=== PATIENT | female | born 1980 | race Caucasian/White ===

== ENCOUNTER 2016-08-23 21:54 | Emergency (ER) | payer BC ==
[~2016-08-23] VITALS: Ht 160 cm; Wt 63.5 kg
--- NOTE | 2016-08-23 22:20 | Emergency Room Report ---
History of Present Illness General Chief Complaint: Complications Source: Patient Present Illness HPI The patient did have a flight from [place]. After that she started having pain in her medial upper thigh. She spoke with her doctor and her doctor sent her in to get evaluation for blood clot. The pain is worse when she lifts her leg. There is no swelling in the ankle. Is no calf tenderness. She's not had blood clots before. The patient is 22 weeks . Estimated date of confinement is December 18. Her last period was March. She lives in [place] and that her OBS. She feels movement. There is no vaginal discharge or bleeding. There is no abdominal pain. There's no dysuria. She has no fevers. There is no cough, chest pain, dyspnea or hemoptysis. There is no family history blood clots. Allergies: Uncoded Allergies: SULFA (Allergy, Unknown, 08/23/16) Patient History Past Medical History: see triage record Social History: Denies: smoking Social History Narrative from [place] Last Menstrual Period: 03/2016 Now: Yes - 22 weeks : 1 Para: 0 Reviewed Nursing Documentation: PMH: Agreed, PSxH: Agreed Nursing Documentation-PMH Past Medical History: No Stated History Review of Systems All Other Systems: negative except mentioned in HPI Physical Exam Vital Signs Date Time Temp Pulse Resp B/P Pulse Ox O2 Delivery O2 Flow Rate FiO2 08/23/16 22:03 97.3 81 16 107/71 100 Room Air Sp02 EP Interpretation: reviewed, normal General Appearance: well appearing, no apparent distress, GCS 15 Head: normocephalic Eyes: bilateral eye normal inspection ENT: moist mucus membranes Neck: supple Respiratory: lungs clear, normal breath sounds Cardiovascular #1: regular rate, rhythm, no edema Cardiovascular #2: 2+ radial (R) Gastrointestinal: normal inspection, normal bowel sounds, non tender, no mass, non-distended, other - gravid - FHT 146 Musculoskeletal: back normal, gait/station normal, normal range of motion, no calf tenderness, Alon's Sign negative, tender - thigh, medially, worse with adduction Neurologic: alert, oriented x3 Psychiatric: mood/affect normal Skin: normal inspection, warm/dry Medical Decision Making Diagnostic Impression: Primary Impression: Muscle strain Additional Impression: 22 weeks gestation of ER Course Patient with thigh pain after airplane trip. 22 weeks without sy. Here to exclude DVT. Ultrasound indicated. Tylenol given. Ultrasound negative. Possible false negative test, but risk is low. Needs repeat exam. Improved. Patient stable for outpatient observation and treatment. Labs Test 08/23/16 23:00 Urine Color Yellow Urine Appearance Clear Urine pH 7 (4.5-8.0) Urine Specific [place] 1.010 (1.005-1.035) Urine Protein Negative (NEGATIVE) Urine Glucose (UA) Negative (NEGATIVE) Urine Ketones Negative (NEGATIVE) Urine Occult Blood Negative (NEGATIVE) Urine Nitrite Negative (NEGATIVE) Urine Bilirubin Negative (NEGATIVE) Urine Urobilinogen Normal MG/DL (0.0-1.0) Urine Leukocyte Esterase 1+ (NEGATIVE) Urine RBC 0-2 /HPF (0 - 2) Urine WBC 2-4 /HPF (0 - 2) Urine Squamous Epithelial Cells Few /LPF (NONE/OCC) Urine Amorphous Sediment Few /LPF (NONE) Urine Bacteria Few /HPF (NONE) CT/MRI/US Diagnostic Results CT/MRI/US Diagnostic Results : Imaging Test Ordered: U/S DVT study Impression neg for DVT Last Vital Signs Date Time Temp Pulse Resp B/P Pulse Ox O2 Delivery O2 Flow Rate FiO2 08/23/16 22:03 97.3 81 16 107/71 100 Room Air Status: improved Disposition: HOME, SELF-CARE Condition: Improved Alex Luong M.D. Aug 23, 2016 22:20
[2016-08-23 23:14] VITALS: BP 108/80
[2016-08-23 23:26] LABS: APPEARANCE,URINE CLEAR; KETONES,URINE NEGATIVE (NEGATIVE); LEUKOCYTE ESTERASE ,URINE 1+ (NEGATIVE); NITRITE,URINE NEGATIVE (NEGATIVE); PH,URINE 7 (4.5-8.0); PROTEIN,URINE NEGATIVE (NEGATIVE); UROBILINOGEN,URINE NORMAL MG/DL (0.0-1.0)
[2016-08-23 23:39] LABS: AMORPHOUS SEDIMENT,UR FEW /LPF; BACTERIA,URINE FEW /HPF; RBC,URINE 0-2 /HPF (0 - 2); SQUAMOUS EPITHELIAL CELL,UR FEW /LPF (NONE/OCC)
--- NOTE | 2016-08-29 17:12 | Diagnostic Imaging Report ---
APPROVED REPORT CPT Code: 44740 Present Symptoms Lower Extremity Pain: Right BILATERAL: Imaging reveals a patent deep venous system bilaterally. There is no evidence of thrombus within the femoral, popliteal or tibial segments. The greater saphenous veins are also within normal limits. Doppler indicates normal spontaneous flow within these segments.
== END 2016-08-23 23:20 | disposition home or self-care (01) ==
LOC: EMR 22:15
DX: O26.892 Other specified pregnancy related conditions, second trimester (principal); Z3A.22 22 weeks gestation of pregnancy; S76.811A Strain of other specified muscles, fascia and tendons at thigh level, right thigh, initial encounter; X58.XXXA Exposure to other specified factors, initial encounter; Y92.89 Other specified places as the place of occurrence of the external cause; Z88.2 Allergy status to sulfonamides
CPT/HCPCS: 81003; 93970; 99283